=== PATIENT | female | born 1940 | race Caucasian/White ===

== ENCOUNTER 2017-04-30 05:32 | Inpatient (IN) | payer MEDICARE, OTHER ==
[~2017-04-30] VITALS: Ht 175.3 cm; Wt 83.6 kg
[~2017-04-30 05:32] MED LIST: 0.9% SODIUM CHLORIDE 10 ML SYRINGE IVP ONE; DEXAMETHASONE SOD PHOS 4 MG/ML VIAL IVP ONE; DILT180C3 PO; EPHEDrine SULFATE 50 MG/ML VIAL IM ONE; FURO40 PO; FentaNYL CITRATE-PF 100 MCG/2 ML VIAL IVP ONE; KDUR20 PO; LEVO125 PO; LIDOCAINE HCL/PF 2% 5 ML VIAL IM ONE; MIDAZOLAM HCL 2 MG/2 ML VIAL IVP ONE; ONDANSETRON HCL 4 MG/2 ML VIAL IVP ONE; PROPOFOL 1% 20 ML VIAL IVP ONE; RANI150T7 PO; RIVA20TA PO; SUCCINYLCHOLINE CHLORIDE 20 MG/ML 10 ML VIAL IVP ONE
[2017-04-30] MEDS ORDERED: CeFAZolin 2 GM/DEXTROSE 50 ML IV ONE ×2 (05:44→07:30)
[2017-04-30] MEDS ORDERED: RINGERS SOLUTION,LACTATED 1,000 ML IV ONE ×4 (05:44→07:30)
[2017-04-30] MEDS ORDERED: GABA-531 PO (06:04)
[2017-04-30 06:26] LABS: BASOPHILS # (AUTO) 0.04 K/uL (0.00-0.20); BASOPHILS % (AUTO) 0.7 % (0.0-2.0); EOSINOPHILS # (AUTO) 0.24 K/uL (0.00-0.70); EOSINOPHILS % (AUTO) 3.59 % (1.0-6.0); HEMATOCRIT 38.5 % (36-46); HEMOGLOBIN 12.8 g/dL (12.0-16.0); LYMPHOCYTES # (AUTO) 2.1 K/uL (1.0-4.8); LYMPHOCYTES % (AUTO) 31.7 % (22.0-44.0); MEAN CORPUSCULAR HEMOGLOBIN 30.6 pg (26.0-34.0); MEAN CORPUSCULAR HGB CONC 33.3 G/dL (31.0-37.0); MEAN CORPUSCULAR VOLUME 92 fL (80-100); MONOCYTES # (AUTO) 0.9 K/uL (0.1-1.0); MONOCYTES % (AUTO) 13.5 % (2.0-9.0); NEUTROPHILS # (AUTO) 3.3 K/uL (1.8-7.7); NEUTROPHILS % (AUTO) 50.5 % (40.0-70.0); PLATELET COUNT (AUTO) 259 K/uL (150-450); RED BLOOD CELL COUNT(AUTO) 4.19 MIL/uL (4.00-5.20); RED CELL DISTRIBUTION WIDTH 15.2 % (11.5-14.5); WHITE BLOOD COUNT (AUTO) 6.6 K/uL (4.5-11.0)
[2017-04-30 06:32] LABS: ANION GAP 11 mmol/L (8-16); CALCIUM, TOTAL 9.6 mg/dL (8.8-10.5); CARBON DIOXIDE 26 mmol/L (22-29); CHLORIDE 108 mmol/L (98-107); CREATININE 0.85 mg/dL (0.60-1.30); GLOMERULAR FILTR. RATE CALC > 60 mL/min (>60); POTASSIUM 4.2 mmol/L (3.5-5.1); SODIUM SERUM 145 mmol/L (136-145); UREA NITROGEN, BLOOD 14 mg/dL (7-18)
[2017-04-30 06:33] LABS: PROTHROMBIN TIME 10.7 SEC (9.4-11.6)
[2017-04-30 06:37] LABS: ALANINE AMINOTRANSFERASE 22 U/L (12-78); ALBUMIN 3.7 g/dL (3.4-5.0); ASPARTATE AMINOTRANSFERASE 14 U/L (15-37); BILIRUBIN,TOTAL 0.8 mg/dL (0.1-1.0); TOTAL PROTEIN, SERUM 7.1 g/dL (6.4-8.2)
[2017-04-30] MEDS ORDERED: ACETAMINOPHEN 1000 MG/ISO-OSM 100 ML IV ONE ×2 (06:54→07:00)
[2017-04-30] MEDS ORDERED: VANCOMYCIN HCL 1 GM/VIAL ONE (06:55)
[2017-04-30] MEDS ORDERED: BUPIVACAINE HCL/PF 0.5% 30 ML VIAL ONE (06:55)
[2017-04-30] MEDS ORDERED: MAG HYDROX/AL HYDROX/SIMETH 30 ML SUSP UDCUP PO PRN (07:15)
[2017-04-30] MEDS ORDERED: ONDANSETRON HCL 4 MG/2 ML VIAL IVP PRN ×2 (07:15→07:45)
[2017-04-30] MEDS ORDERED: BENZOCAINE/MENTHOL LOZENGE [8 LOZENGES/PACKET] PO PRN (07:15)
[2017-04-30] MEDS ORDERED: ZOLPIDEM TARTRATE 10 MG TABLET PO PRN (07:15)
[2017-04-30] MEDS ORDERED: MEPERIDINE-PF 25 MG/ML SYRINGE IVP PRN (07:45)
[2017-04-30] MEDS ORDERED: PROMETHAZINE HCL 25 MG/ML VIAL IM PRN (07:45)
[2017-04-30] MEDS ORDERED: BUPIVACAINE LIPOSOME/PF 1.3%-13.3MG/ML SUSPENSION 20 ML VIAL INJ ONE (07:45)
[2017-04-30] MEDS ORDERED: FentaNYL CITRATE-PF 100 MCG/2 ML VIAL IVP PRN (07:45)
[2017-04-30] MEDS ORDERED: ZOLPIDEM TARTRATE 5 MG TABLET PO PRN (07:45)
[2017-04-30] MEDS ORDERED: CYCLOBENZAPRINE HCL 10 MG TABLET PO PRN (07:45)
[2017-04-30] MEDS ORDERED: HYDROmorphone 2 MG/ML SYRINGE IVP PRN (07:45)
[2017-04-30] MEDS: OXYGEN THERAPY IH SCH ×2 (08:00→20:00)
[2017-04-30 09:45] VITALS: BP 145/63
[2017-04-30] MEDS: HYDROmorphone 2 MG/ML SYRINGE IVP PRN ×2 (09:52→21:08)
[2017-04-30 12:00] VITALS: BP 143/62
[2017-04-30] MEDS ORDERED: PNEUMOCOCCAL VACCINE POLYVALENT 0.5 ML VIAL [PPSV23] IM ONE (12:00)
[2017-04-30] MEDS: ACETAMINOPHEN 1000 MG/ISO-OSM 100 ML IV SCH ×2 (13:09→18:45)
[2017-04-30 16:00] VITALS: BP 144/61
[2017-04-30 21:11] VITALS: BP 146/75
[2017-04-30 23:38] VITALS: BP 167/77
[2017-05-01] MEDS: ACETAMINOPHEN 1000 MG/ISO-OSM 100 ML IV SCH (01:00)
[2017-05-01] MEDS ORDERED: LEVOTHYROXINE SODIUM 125 MCG TABLET PO SCH (06:30)
[2017-05-01 06:34] VITALS: BP 140/71
[2017-05-01 07:40] VITALS: BP 152/75
[2017-05-01] MEDS: HYDROCODONE/ACETAMINOPHEN 10-325 MG TABLET PO PRN ×2 (08:43→13:15)
[2017-05-01] MEDS ORDERED: RANITIDINE HCL 150 MG TABLET PO SCH (09:00)
[2017-05-01] MEDS ORDERED: FUROSEMIDE 40 MG TABLET PO SCH (09:00)
[2017-05-01] MEDS ORDERED: DILTIAZEM HCL CD 180 MG ER CAPSULE PO SCH (09:00)
[2017-05-01] MEDS ORDERED: POTASSIUM CHLORIDE 20 MEQ ER TABLET PO SCH (09:00)
[2017-05-01 11:30] VITALS: BP 125/46
== END 2017-05-01 13:40 | disposition home or self-care (01) | DRG 517 ==
LOC: 4E 05:32
PROVIDERS: ADMIT Internal Medicine; ATTEND Orthopaedic Surgery Orthopaedic Surgery of the Spine
PROC: 01NB0ZZ Release Lumbar Nerve, Open Approach (ICD-10-PCS; principal; 2017-04-30 07:30)
DX: M48.06 Spinal stenosis, lumbar region (principal); I48.91 Unspecified atrial fibrillation; E03.9 Hypothyroidism, unspecified; G89.29 Other chronic pain; M54.9 Dorsalgia, unspecified; M54.30 Sciatica, unspecified side; Z90.710 Acquired absence of both cervix and uterus; Z79.899 Other long term (current) drug therapy; Z28.21 Immunization not carried out because of patient refusal; Z86.711 Personal history of pulmonary embolism; Z86.718 Personal history of other venous thrombosis and embolism
CPT/HCPCS: 87081; 93005; 93970; 97161; 97165; 97530; C9290; G0238; J0131; J0330; J0690; J1100; J1170; J2250; J2405; J2704; J3010; J3370; J3490; J7120